=== PATIENT | male | born 1955 | race Caucasian/White ===

== ENCOUNTER 2023-06-07 08:30 | Inpatient (IN) | payer BC ==
[2023-06-08 16:43] VITALS: BMI 27.1
[2023-06-14] MEDS ORDERED: Midazolam HCl 2 mg/2 ml Vial ONE (08:04)
[2023-06-14] MEDS ORDERED: Bupivacaine 0.25% HCL 30 ML VIAL ONE (08:04)
[2023-06-14] MEDS ORDERED: fentaNYL 50 mcg/mL 1 mL Vial ONE (08:04)
[2023-06-14] MEDS ORDERED: Lidocaine 1% (PF) 30 ML VIAL ONE (08:11)
[2023-06-14] MEDS ORDERED: PROPOFOL 20 ML ONE (08:17)
[2023-06-14] MEDS ORDERED: Rocuronium Bromide 10 MG/ML (10ML VIAL) ONE (08:17)
[2023-06-14] MEDS ORDERED: Sodium Chloride 0.9% 100 ML ONE (09:07)
[2023-06-14] MEDS ORDERED: cefOXitin 2 GM VIAL ONE ×3 (09:07→11:10)
[2023-06-14] MEDS ORDERED: fentaNYL PF 100 MCG/2 ML SYRINGE ONE (09:17)
[2023-06-14] MEDS ORDERED: Promethazine HCl 25 MG/ML VIAL IM PRN ×2 (12:13→14:25)
[2023-06-14] MEDS ORDERED: Ondansetron HCl/PF 4 MG/2 ML Vial IVP PRN (12:13)
[2023-06-14] MEDS ORDERED: Ondansetron PF 4 MG/2 ML Vial ONE (12:14)
[2023-06-14] MEDS ORDERED: Ketorolac Tromethamine 30 MG (1 mL) VIAL ONE (12:14)
[2023-06-14] MEDS ORDERED: NEOSTIGMINE 3 MG/3 ML SYR 3 MG/3 ML SYRINGE ONE (12:27)
[2023-06-14] MEDS ORDERED: Glycopyrrolate 0.2 MG/ML 5 ML SYRINGE ONE (12:27)
[2023-06-14] MEDS ORDERED: HYDROmorphone 2 MG/ML VIAL ONE (13:09)
[2023-06-14] MEDS ORDERED: Ipratropium/Albuterol 3 ML NEB NEB PRN (14:25)
[2023-06-14] MEDS ORDERED: hydrALAZINE 20 MG/ML VIAL SLOW IVP PRN (14:25)
[2023-06-14] MEDS ORDERED: Fentanyl 100 MCG/2 ML VIAL SLOW IVP PRN (14:25)
[2023-06-14] MEDS ORDERED: Ondansetron PF 4 MG/2 ML Vial IVP PRN (14:25)
[2023-06-14] MEDS: traMADol HCl 50 MG TAB PO PRN (17:21)
[2023-06-14] MEDS: Acetaminophen 325 MG TAB PO PRN (17:22)
[2023-06-14] MEDS: D5 1/2 NS w/20 mEq KCL 1,000 ML IV SCH (17:27)
[2023-06-14] MEDS: Famotidine 20 MG TAB PO SCH (20:43)
[2023-06-14] MEDS: cefOXitin 2 GM in Sodium Chloride 0.9% 100 ML IVPB SCH (20:44)
[2023-06-14] MEDS: HYDROcodone/Acetaminophen 7.5/325 mg Tablet PO PRN (20:46)
[2023-06-14] MEDS: Famotidine/PF 20 mg/2ml Vial SLOW IVP SCH (22:24)
[2023-06-15 05:17] LABS: #Neutrophils 6.9 thou/uL (1.40-6.50); %Basophils 0.2 % (0.0-1.0); %Eosinophils 0.1 % (0.0-10.0); %Lymphocytes 18.1 % (21.0-51.0); %Monocytes 10.6 % (0.0-10.0); %Neutrophils 70.8 % (42.0-75.0); Hematocrit 38.6 % (42.0-52.0); Hemoglobin 13.2 g/dL (14.0-18.0); Mean Corpuscular HGB CONC 34.2 g/dL (32.0-36.0); Mean Corpuscular Hemoglobin 33.1 pg (27.0-31.0); Mean Corpuscular Volume 96.7 fl (78.0-98.0); Mean Platelet Volume 10.1 fL (7.4-10.4); Platelet Count 285 10x3/uL (130-400); RBC Distribution Width 12.5 % (11.5-14.5); Red Blood Cell (RBC) Count 3.99 mill/uL (4.70-6.10); White Blood Cell (WBC) Count 9.8 10x3/uL (4.8-10.8)
[2023-06-15 05:41] LABS: Anion Gap 12 mmol/L (10-20); BUN (Urea Nitrogen) 10 mg/dL (8.4-25.7); Calc. Creatinine Clearance 107 mL/min (70-130); Calcium 8.9 mg/dL (7.8-10.44); Carbon Dioxide 23 mmol/L (23-31); Chloride 106 mmol/L (98-107); Estimated GFR 96; Glucose 114 mg/dL (80-115); Sodium 137 mmol/L (136-145)
[2023-06-15] MEDS: Enoxaparin 40 MG (0.4 mL) SYRINGE SC SCH (09:55)
[2023-06-15] MEDS: D5 1/2 NS w/20 mEq KCL 1,000 ML IV SCH (09:57)
[2023-06-16 12:10] VITALS: BP 148/80; TEMP 97.6
== END 2023-06-16 12:40 | disposition home or self-care (01) | DRG 331 ==
LOC: SURG A 06-14 06:49 → SJJU 06-14 14:05
PROVIDERS: ADMIT Surgery; ATTEND Surgery
PROC: 0DBL4ZZ Excision of Transverse Colon, Percutaneous Endoscopic Approach (ICD-10-PCS; principal; 2023-06-14)
PROC: 8E0W4CZ Robotic Assisted Procedure of Trunk Region, Percutaneous Endoscopic Approach (ICD-10-PCS; 2023-06-14)
DX: C18.4 Malignant neoplasm of transverse colon (principal); F17.210 Nicotine dependence, cigarettes, uncomplicated
CPT/HCPCS: 36415; 36416; 80048; 85025; 88309; A4314; A4333; J0665; J0694; J1170; J1650; J1885; J2001; J2250; J2405; J2704; J3010; J3480; J3490

== ENCOUNTER 2023-06-08 16:26 | Outpatient (CLI) | payer BC ==
[2023-06-08 17:02] LABS: #Basophils 0.1 10x3/uL (0.0-0.2); #Eosinphils 0.4 10x3/uL (0.0-0.5); #Monocytes 0.4 10x3/uL (0.0-1.1); #Neutrophils 3.1 10x3/uL (1.5-8.4); %Eosinophils 6.6 % (0.0-6.0); %Lymphocytes 31.9 % (18.0-47.0); %Monocytes 7.6 % (0.0-10.0); %Neutrophils 52.7 % (40.0-75.0); Hematocrit 37.1 % (38.8-50.0); Hemoglobin 13.5 g/dL (13.5-17.5); Mean Corpuscular HGB CONC 36.4 g/dL (32.0-36.0); Mean Corpuscular Hemoglobin 33.3 pg (27.0-33.0); Mean Corpuscular Volume 91.6 fl (81.2-95.1); Mean Platelet Volume 9.8 fl (7.4-10.4); Platelet Count 285 10x3/uL (150-450); RBC Distribution Width 12.4 % (11.5-14.5); Red Blood Cell (RBC) Count 4.05 10x6/uL (4.32-5.72); White Blood Cell (WBC) Count 5.8 10x3/uL (3.5-10.5)
[2023-06-08 17:24] LABS: Anion Gap 12 mmol/L (10-20); BUN (Urea Nitrogen) 13 mg/dL (8.4-25.7); Calc. Creatinine Clearance 0 mL/min (70-130); Calcium 8.6 mg/dL (7.8-10.44); Carbon Dioxide 22 mmol/L (23-31); Chloride 109 mmol/L (98-107); Estimated GFR 95; Glucose 114 mg/dL (80-115); Potassium 3.8 mmol/L (3.5-5.1); Sodium 139 mmol/L (136-145)
[2023-06-08 20:06] LABS: Hemoglobin A1c 5.4 % (4.0-6.0)
== END 2023-06-08 16:27 | disposition home or self-care (01) ==
LOC: LABBT 16:26
PROVIDERS: ATTEND Surgery
DX: Z01.812 Encounter for preprocedural laboratory examination (principal); C18.4 Malignant neoplasm of transverse colon
CPT/HCPCS: 80048; 83036; 85025